=== PATIENT | female | born 1975 | race African-American/Black ===

== ENCOUNTER 2023-06-29 22:19 | Emergency (ER) | payer SELFPAY ==
[~2023-06-29] VITALS: Ht 172.7 cm; Wt 83.0 kg
[2023-06-29 22:40] VITALS: O2SAT 100
[2023-06-30] MEDS ORDERED: KETOROLAC 60MG/2ML VIAL IM ONE (01:00)
[2023-06-30 02:08] VITALS: BP 158/74
[2023-06-30 03:21] VITALS: PULSE 66; RESP 20; TEMP 98.3
== END 2023-06-30 03:23 | disposition home or self-care (01) ==
LOC: ER 22:19
DX: M25.561 Pain in right knee (principal); M25.562 Pain in left knee
CPT/HCPCS: 81025; 99285; 93971; 73560; 73590; 96372; J1885; Z7610